=== PATIENT | female | born 1950 | race Hispanic/Latino ===

== ENCOUNTER → 2025-09-26 | Outpatient (REF) | payer MEDICARE ==
[~2025-09-26] MED LIST: IOPAMIDOL 370 MG/ML 100 ML INFUS..BTL INJ ONE
[2025-09-26 09:34] LABS: EST GLOMERULAR FILTRATION RATE 91.0 ML/MIN (>=60)
== END ==
LOC: CT 08:43
PROVIDERS: ATTEND Physician Assistant Medical
DX: K43.9 Ventral hernia without obstruction or gangrene (principal)
CPT/HCPCS: 36415; 74177; 82565; 84520; Q9967